=== PATIENT | female | born 1965 | race Two or more races ===

== ENCOUNTER 2020-08-07 07:50 | Day surgery (SDC) | payer OTHER ==
[~2020-08-07 07:50] MED LIST: ADVIL; ALBUTEROL IH; MELATONIN10 MG PO; PROZAC PO; SINGULAIR10 MG PO
[2020-08-07] MEDS ORDERED: PROAIR HFA8.5 GM (08:14)
[2020-08-07] MEDS ORDERED: PROZAC20 MG PO (08:15)
[2020-08-07] MEDS ORDERED: ADVIL200 MG PO (08:15)
[2020-08-07] MEDS ORDERED: PERCOCET 5-3251 EACH PO (10:25)
== END 2020-08-07 11:00 | disposition home or self-care (01) ==
LOC: CIR.AMB 07:50 → SURH 09:15 → EDSTATUS 09:45 → SURH 09:45 → CIR.AMB 11:00 → O/R 13:50
PROVIDERS: ATTEND Surgery
DX: D35.1 Benign neoplasm of parathyroid gland (principal); Z20.822 Contact with and (suspected) exposure to COVID-19